=== PATIENT | male | born 1965 | race Caucasian/White ===

== ENCOUNTER → 2016-12-16 | Outpatient (CLI) | payer OTHER ==
[~2016-12-16] VITALS: Ht 175.3 cm; Wt 106.4 kg
[~2016-12-16] MED LIST: ARMOUR THYROID240 MG PO; LOSARTAN POTASS50 MG PO; VYVANSE60 MG PO
[2016-12-16 15:26] VITALS: BP 135/85
== END | disposition home or self-care (01) ==
LOC: IVINF 14:51
DX: A69.20 Lyme disease, unspecified (principal); B60.0 Babesiosis
CPT/HCPCS: 96365; J0696; J7050